=== PATIENT | male | born 1970 | race Caucasian/White ===

== ENCOUNTER 2021-09-13 14:01 | Emergency (ER) | payer SELFPAY ==
[~2021-09-13] VITALS: Ht 172.7 cm; Wt 110.5 kg
[2021-09-13] MEDS ORDERED: MORPHINE SULFATE 4 MG/ML INJ. IV/SQ PRN (14:15)
[2021-09-13 14:26] LABS: BASO # 0.1 x10^3/uL (0.0-0.2); BASO % 1 % (0-3); EOS # 0.1 x10^3/uL (0.0-0.7); EOS % 2 % (0-3); HEMATOCRIT 43.1 % (39.0-53.0); HEMOGLOBIN 14.9 g/dL (13.0-17.5); LYMPH # 1.7 x10^3/uL (1.0-4.8); LYMPH % 24 % (24-48); MEAN CORPUSCULAR HEMOGLOBIN 30 pg (25-35); MEAN CORPUSCULAR HGB CONC 35 g/dL (31-37); MEAN CORPUSCULAR VOLUME 88 fL (79-100); MONO # 0.5 x10^3/uL (0.0-1.1); MONO % 8 % (0-9); NEUT # 4.5 x10^3/uL (1.8-7.7); NEUT % 65 % (31-73); PLATELET COUNT 241 x10^3/uL (140-400); RED BLOOD COUNT 4.91 x10^6/uL (4.30-5.70); RED CELL DISTRIBUTION WIDTH 13.7 % (11.5-14.5); WHITE BLOOD COUNT 6.9 x10^3/uL (4.0-11.0)
[2021-09-13] MEDS: NITROGLYCERIN SUBLINGUAL 0.4 MG BOTTLE OF 25. SL PRN ×2 (14:34→15:06)
--- NOTE | 2021-09-13 14:36 | RAD ---
EXAM: AP View of the chest DATE: 09/13/2021 2:24 PM INDICATION: Reason: chest pain / Spl. Instructions: / History: COMPARISON: No Prior FINDINGS: The heart is not enlarged. Mediastinal and hilar contours are normal. Patchy opacities left lung base likely atelectasis or developing consolidation. No pleural effusion or pneumothorax. IMPRESSION: Patchy opacities left lung base likely atelectasis or developing consolidation. Electronically signed by: Alirio Marlow MD (09/13/2021 2:33 PM) [id number]
[2021-09-13 14:55] LABS: CALCIUM 8.5 mg/dL (8.5-10.1); CREATININE 0.9 mg/dL (0.7-1.3); POTASSIUM 3.8 mmol/L (3.5-5.1)
[2021-09-13 15:07] LABS: ALBUMIN 3.6 g/dL (3.4-5.0); ALBUMIN/GLOBULIN RATIO 1.2 (1.0-1.7); MAGNESIUM 2.2 mg/dL (1.8-2.4); TOTAL BILIRUBIN 0.5 mg/dL (0.2-1.0); TOTAL PROTEIN 6.7 g/dL (6.4-8.2)
[2021-09-13 16:00] LABS: BILIRUBIN,URINE NEGATIVE (NEG); CLARITY,URINE CLEAR; COLOR,URINE YELLOW; NITRITE,URINE NEGATIVE (NEG); PROTEIN,URINE NEGATIVE (NEG-TRACE); UROBILINOGEN,URINE 0.2 mg/dL (0.2 mg/dL)
[2021-09-13 16:13] LABS: BARBITURATES NEG (NEG); BENZODIAZEPINES NEG (NEG); CANNABINOIDS NEG (NEG); COCAINE NEG (NEG); METHADONE NEG (NEG); OPIATES NEG (NEG); PHENCYCLIDINE NEG (NEG)
[2021-09-13 16:14] LABS: AMPHETAMINE/METHAMPHETAMINE NEG (NEG)
[2021-09-13 16:24] LABS: BACTERIA,URINE 0 /HPF (0-FEW); RBC,URINE 0 /HPF (0-2); WBC,URINE 0 /HPF (0-4)
[2021-09-13 19:00] VITALS: BP 120/74
--- NOTE | 2021-09-13 19:09 | PHYS DOC ---
Past Medical History Additional Past Medical Histor: TREMORS Past Surgical History: Other Additional Past Surgical Histo: KNEE Smoking Status: Former Smoker Additional Information: SMOKED CIGARS YEARS AGO Alcohol Use: None General Adult EDM: Chief Complaint: CHEST PAIN HPI: HPI: Patient is a 50 year old male with history of sleep apnea, chronic shortness of breath, who presents to the ED today complaining of 3 out of 10 substernal chest pain, nonradiating, symptoms began while working at the [employer]. Patient denies anything specifically exacerbating the pain but states the aspirin EMS gave him relief to the pain. He states he has been working 6 days a week for a long time and is currently very exhausted. Denies any fever. Denies any cough or congestion. Review of Systems: Review of Systems: Constitutional: Denies fever or chills. [] Eyes: Denies change in visual acuity. [] HENT: Denies nasal congestion or sore throat. [] Respiratory: Reports shortness of breath, denies cough Cardiovascular: Reports chest pain GI: Denies abdominal pain, nausea, vomiting, bloody stools or diarrhea. [] : Denies dysuria. [] Musculoskeletal: Denies back pain or joint pain. [] Integument: Denies rash. [] Neurologic: Denies headache, focal weakness or sensory changes. [] ] Psychiatric: Denies depression or anxiety. [] Heart Score: C/O Chest Pain: Yes HEART Score for Chest Pain: HEART Score for Chest Pain Response (Comments) Value History Slighlty/Non-Suspicious 0 ECG Normal 0 Age >45 - < 65 1 Risk Factors No Risk Factors 0 Troponin < Normal Limit 0 Total 1 Risk Factors: Risk Factors: DM, Current or recent (<one month) smoker, HTN, HLP, family history of CAD, obesity. Risk Scores: Score 0 - 3: 2.5% MACE over next 6 weeks - Discharge Home Score 4 - 6: 20.3% MACE over next 6 weeks - Admit for Clinical Observation Score 7 - 10: 72.7% MACE over next 6 weeks - Early Invasive Strategies Current Medications: Current Medications Medications (Trade) Dose Ordered Sig/Haile Start Time Stop Time Status Last Admin Dose Admin Morphine Sulfate (Morphine Sulfate) 4 mg PRN Q15MIN PRN 09/13/21 14:15 09/14/21 14:14 Nitroglycerin (Nitrostat) 0.4 mg PRN Q5MIN PRN 09/13/21 14:15 09/14/21 14:14 09/13/21 15:06 0.4 MG Allergies: Allergies: Allergies Coded Allergies Type Severity Reaction Last Updated Verified Sulfa (Sulfonamide Antibiotics) Allergy Unknown UNKNOWN 09/13/21 Yes Physical Exam: PE: Constitutional: Well developed, well nourished, no acute distress, non-toxic appearance. [] HENT: Normocephalic, atraumatic, bilateral external ears normal, oropharynx moist, no oral exudates, nose normal. [] Eyes: PERRLA, EOMI, conjunctiva normal, no discharge. [] Neck: Normal range of motion, no tenderness, supple, no stridor. [] Cardiovascular:Heart rate regular rhythm, no murmur [] Lungs & Thorax: Bilateral breath sounds clear to auscultation [] Abdomen: Bowel sounds normal, soft, no tenderness, no masses, no pulsatile masses. [] Skin: Warm, dry, no erythema, no rash. [] Back: No tenderness, no CVA tenderness. [] Extremities: No tenderness, no cyanosis, no clubbing, ROM intact, no edema. [] Neurologic: Alert and oriented X 3, normal motor function, normal sensory function, no focal deficits noted. [] Psychologic: Affect normal, judgement normal, mood normal. [] Current Patient Data: Labs: Laboratory Tests Test 09/13/21 14:10 09/13/21 15:05 09/13/21 15:49 09/13/21 18:00 White Blood Count 6.9 x10^3/uL (4.0-11.0) Red Blood Count 4.91 x10^6/uL (4.30-5.70) Hemoglobin 14.9 g/dL (13.0-17.5) Hematocrit 43.1 % (39.0-53.0) Mean Corpuscular Volume 88 fL (79-100) Mean Corpuscular Hemoglobin 30 pg (25-35) Mean Corpuscular Hemoglobin Concent 35 g/dL (31-37) Red Cell Distribution Width 13.7 % (11.5-14.5) Platelet Count 241 x10^3/uL (140-400) Neutrophils (%) (Auto) 65 % (31-73) Lymphocytes (%) (Auto) 24 % (24-48) Monocytes (%) (Auto) 8 % (0-9) Eosinophils (%) (Auto) 2 % (0-3) Basophils (%) (Auto) 1 % (0-3) Neutrophils # (Auto) 4.5 x10^3/uL (1.8-7.7) Lymphocytes # (Auto) 1.7 x10^3/uL (1.0-4.8) Monocytes # (Auto) 0.5 x10^3/uL (0.0-1.1) Eosinophils # (Auto) 0.1 x10^3/uL (0.0-0.7) Basophils # (Auto) 0.1 x10^3/uL (0.0-0.2) Sodium Level 137 mmol/L (136-145) Potassium Level 3.8 mmol/L (3.5-5.1) Chloride Level 102 mmol/L (98-107) Carbon Dioxide Level 28 mmol/L (21-32) Anion Gap 7 (6-14) Blood Urea Nitrogen 13 mg/dL (8-26) Creatinine 0.9 mg/dL (0.7-1.3) Estimated GFR (Cockcroft-Gault) 89.0 BUN/Creatinine Ratio 14 (6-20) Glucose Level 89 mg/dL (70-99) Calcium Level 8.5 mg/dL (8.5-10.1) Magnesium Level 2.2 mg/dL (1.8-2.4) Total Bilirubin 0.5 mg/dL (0.2-1.0) Aspartate Amino Transferase (AST) 25 U/L (15-37) Alanine Aminotransferase (ALT) 33 U/L (16-63) Alkaline Phosphatase 88 U/L (46-116) Troponin I High Sensitivity 5 ng/L (4-75) 5 ng/L (4-75) NX-Ijx-V-Type Natriuretic Peptide 38 pg/mL (0-124) Total Protein 6.7 g/dL (6.4-8.2) Albumin 3.6 g/dL (3.4-5.0) Albumin/Globulin Ratio 1.2 (1.0-1.7) Thyroid Stimulating Hormone (TSH) 0.758 uIU/mL (0.358-3.74) Lactic Acid Level 0.5 mmol/L (0.4-2.0) Urine Collection Type Unknown Urine Color Yellow Urine Clarity Clear Urine pH 6.0 (<5.0-8.0) Urine Specific [place] 1.010 (1.000-1.030) Urine Protein Negative mg/dL (NEG-TRACE) Urine Glucose (UA) Negative mg/dL (NEG) Urine Ketones (Stick) Negative mg/dL (NEG) Urine Blood Negative (NEG) Urine Nitrite Negative (NEG) Urine Bilirubin Negative (NEG) Urine Urobilinogen Dipstick 0.2 mg/dL (0.2 mg/dL) Urine Leukocyte Esterase Negative (NEG) Urine RBC 0 /HPF (0-2) Urine WBC 0 /HPF (0-4) Urine Bacteria 0 /HPF (0-FEW) Urine Mucus Slight /LPF Urine Opiates Screen Neg (NEG) Urine Methadone Screen Neg (NEG) Urine Barbiturates Neg (NEG) Urine Phencyclidine Screen Neg (NEG) Urine Amphetamine/Methamphetamine Neg (NEG) Urine Benzodiazepines Screen Neg (NEG) Urine Cocaine Screen Neg (NEG) Urine Cannabinoids Screen Neg (NEG) Urine Ethyl Alcohol Neg (NEG) Laboratory Tests 09/13/21 14:10 Laboratory Tests 09/13/21 14:10 Vital Signs: Vital Signs Date Time Temp Pulse Resp B/P (MAP) Pulse Ox O2 Delivery O2 Flow Rate FiO2 09/13/21 17:57 72 19 113/67 (82) 96 Room Air 09/13/21 14:01 97.1 97.1 EKG: EK interpreted by Dr. Carvajal sinus rhythm heart rate 73 no STEMI [] [id number] Carvajal sinus rhythm heart rate 70 no STEMI [] Radiology/Procedures: Radiology/Procedures: []PROCEDURE: PORTABLE CHEST 1V EXAM: AP View of the chest DATE: 09/13/2021 2:24 PM INDICATION: Reason: chest pain / Spl. Instructions: / History: COMPARISON: No Prior FINDINGS: The heart is not enlarged. Mediastinal and hilar contours are normal. Patchy opacities left lung base likely atelectasis or developing consolidation. No pleural effusion or pneumothorax. IMPRESSION: Patchy opacities left lung base likely atelectasis or developing consolidation. Electronically signed by: Alirio Marlow MD (09/13/2021 2:33 PM) [id number] DICTATED and SIGNED BY: ALIRIO MARLOW MD DATE: 09/13/21 [id number] 0 Course & Med Decision Making: Course & Med Decision Making Pertinent Labs and Imaging studies reviewed. (See chart for details) This is a 50-year-old male patient with no significant cardiac history presenting today complaining of shortness of breath and chest pain. Shortness of breath is chronic. Chest pain began today at work. Vitals on arrival to the ED temperature 97.1, heart rate 85, respiration 18, blood pressure 147/80, O2 sats 96% on room air. CBC CMP and 2 high-sensitivity troponins are negative for any acute findings. 2 EKGs are normal Chest x-ray is negative for any acute findings. Patient currently resting very well stating his pain has been relieved. He is requesting food and to be discharged to home. He is requesting a couple days of work. He has a PCP for follow-up, provided patient return precautions as well as a field sales associate Colby Disclaimer: Colby Disclaimer: This electronic medical record was generated, in whole or in part, using a voice recognition dictation system. Departure Departure Impression: Primary Impression: Chest pain Qualified Codes: R07.9 - Chest pain, unspecified Additional Impression: Shortness of breath Disposition: HOME / SELF CARE / HOMELESS Condition: STABLE Referrals: UNKNOWN PCP NAME (PCP) follow up in one week EDGARDO CARLIN MD Patient Instructions: Chest Pain (Nonspecific) Additional Instructions: You were evaluated in the emergency room for chest pain or shortness of breath. Cardiac work-up is negative for any acute findings. Please follow-up with your primary care doctor as well as the provided field sales associate. Come back to the ED at any point symptoms worsen CAROLINA SERRATO GRIPPER MACHINE OPERATOR Sep 13, 2021 19:09
--- NOTE | 2021-09-14 11:51 | EKG ---
[facility] [address] [place] [address] Test Date: 2021-09-13 Test Time: 14:13:30 Pat Name: RADHA KRAMER Department: Room: Gender: M Stuffed Casing Tier: : 1970 Requested By: CAROLINA SERRATO Order Number: [id number] Reading MD: Luiz Samano MD Measurements Intervals Viola Rate: 73 P: 39 MS: 142 QRS: -8 QRSD: 106 T: 15 QT: 388 QTc: 431 Interpretive Statements SINUS RHYTHM LEFTWARD AXIS INCOMPLETE RIGHT BUNDLE BRANCH BLOCK Electronically Signed On 09-17-2021 21:41:01 SHEEP HERDER by Luiz Samano MD
--- NOTE | 2021-09-14 11:52 | EKG ---
[facility] [address] [place] [address] Test Date: 2021-09-13 Test Time: 15:47:53 Pat Name: RADHA KRAMER Department: Room: Gender: M Developmental Behavioral Physician: : [id number] Requested By: CAROLINA SERRATO Order Number: [id number] Reading MD: Luiz Samano MD Measurements Intervals [place] Rate: 70 P: 41 UT: 144 QRS: -13 QRSD: 104 T: 15 QT: 396 QTc: 430 Interpretive Statements SINUS RHYTHM Electronically Signed On 09-17-2021 21:40:11 HOG GRADER by Luiz Samano MD
== END 2021-09-13 19:29 | disposition home or self-care (01) ==
LOC: ER 14:01
DX: R07.2 Precordial pain (principal); R06.02 Shortness of breath; Z87.891 Personal history of nicotine dependence; Z88.2 Allergy status to sulfonamides
CPT/HCPCS: 36415; 71045; 80053; 80307; 81001; 83605; 83735; 83880; 84443; 84484; 85025; 87040; 93005; 99285-25